=== PATIENT | female | born 1940 | race Caucasian/White ===

== ENCOUNTER 2022-01-02 12:11 | Outpatient (CLI) | payer MEDICARE, MEDICAID, SELFPAY | END 2022-01-02 12:12 | disposition home or self-care (01) | PROVIDERS: PCP Physician Assistant Medical; Visit Provider Family Medicine | DX: G40.909 Epilepsy, unspecified, not intractable, without status epilepticus (principal); R41.82 Altered mental status, unspecified | CPT/HCPCS: A0425; A0427 ==

== ENCOUNTER 2022-03-10 20:15 | Outpatient (CLI) | payer MEDICARE, SELFPAY | END 2022-03-10 20:16 | disposition home or self-care (01) | LOC: AMB 05-05 13:59 | PROVIDERS: PCP Physician Assistant Medical; Visit Provider Internal Medicine | DX: S89.92XA Unspecified injury of left lower leg, initial encounter (principal); W18.30XA Fall on same level, unspecified, initial encounter; Y92.049 Unspecified place in boarding-house as the place of occurrence of the external cause | CPT/HCPCS: A0425; A0429 ==